=== PATIENT | female | born 1985 | race Caucasian/White ===

== ENCOUNTER 2025-05-16 09:33 | Day surgery (SDC) | payer OTHER ==
[~2025-05-16] VITALS: Ht 152.4 cm; Wt 59.1 kg
[~2025-05-16 09:33] MED LIST: NO MEDS; SODIUM CHLORIDE 0.9% 1,000 ML IV ONE
[2025-05-16] MEDS ORDERED: PROPOFOL 1% 20 ML VIAL IVP ONE (12:00)
[2025-05-16] MEDS ORDERED: LIDOCAINE/PF 2% 5 ML VIAL ONE (12:00)
== END 2025-05-16 13:05 | disposition home or self-care (01) ==
LOC: SURGERY 09:33
PROVIDERS: ATTEND Internal Medicine
DX: K51.90 Ulcerative colitis, unspecified, without complications (principal); K62.89 Other specified diseases of anus and rectum
CPT/HCPCS: 45331; 84703; 88305; C1769; J2704; J3490